=== PATIENT | male | born 1975 | race Caucasian/White ===

== ENCOUNTER → 2018-08-31 | Outpatient (CLI) | payer MEDICAID ==
[2018-08-31 14:54] LABS: EOS # 0.2 (0.04-0.40); HEMATOCRIT 50.4 % (42.0-52.0); HEMOGLOBIN 16.3 g/dL (13.5-18.0); MEAN CELL VOLUME 77 fl (78-100); MEAN CORPUSCULAR HEMOGLOBIN 25 pg (27-31); MEAN CORPUSCULAR HGB CONC 32 g/dL (33-37); MEAN PLATELET VOLUME 10.6 fl (7.4-10.4); MONO # 0.8 (0.20-0.80); NEU # 8.3 (1.40-6.50); PLATELET COUNT 255 K/mm3 (130-400); RED BLOOD COUNT 6.56 M/mm3 (4.20-5.60); RED CELL DISTRIBUTION WIDTH 16.4 % (11.5-14.5); WHITE BLOOD COUNT 11.5 K/mm3 (4.8-10.8)
[2018-08-31 15:05] LABS: ALBUMIN 3.8 g/dL (3.5-5.0); POTASSIUM 3.5 mmol/L (3.5-5.1)
[2018-08-31 15:06] LABS: CALCIUM 9.1 mg/dL (8.3-10.5)
[2018-08-31 15:08] LABS: TOTAL PROTEIN 7.4 g/dL (6.4-8.3)
[2018-08-31 15:09] LABS: TOTAL BILIRUBIN 0.5 mg/dL (0.2-1.2)
[2018-08-31 16:00] LABS: ERYTHROCYTE SEDIMENTATION RATE 7 mm/hr (0-15)
== END ==
LOC: LAB 14:35
PROVIDERS: Internal Medicine
DX: Z12.5 Encounter for screening for malignant neoplasm of prostate (principal); I10 Essential (primary) hypertension; N52.9 Male erectile dysfunction, unspecified; D64.9 Anemia, unspecified; R73.02 Impaired glucose tolerance (oral)

== ENCOUNTER → 2018-12-13 | Outpatient (CLI) | payer MEDICAID ==
[2018-12-13 16:22] LABS: EOS # 0.2 (0.04-0.40); EOS % 2.2 % (0.0-4.0); HEMATOCRIT 49.8 % (42.0-52.0); HEMOGLOBIN 15.9 g/dL (13.5-18.0); LYMPH# 2.3 (1.50-4.00); MEAN CELL VOLUME 78 fl (78-100); MEAN CORPUSCULAR HEMOGLOBIN 25 pg (27-31); MEAN CORPUSCULAR HGB CONC 32 g/dL (33-37); MEAN PLATELET VOLUME 10.5 fl (7.4-10.4); NEU # 6.6 (1.40-6.50); PLATELET COUNT 259 K/mm3 (130-400); RED BLOOD COUNT 6.41 M/mm3 (4.20-5.60); RED CELL DISTRIBUTION WIDTH 16.9 % (11.5-14.5); WHITE BLOOD COUNT 10.2 K/mm3 (4.8-10.8)
== END ==
LOC: LAB 16:08
PROVIDERS: Physician Assistant
DX: D64.9 Anemia, unspecified (principal); K92.1 Melena; R10.9 Unspecified abdominal pain; R11.2 Nausea with vomiting, unspecified

== ENCOUNTER 2020-03-31 15:52 | Emergency (ER) | payer MEDICAID ==
[2020-03-31 16:30] LABS: LIPASE 9 U/L (8-78)
[2020-03-31 17:18] LABS: D-DIMER 0.91 mg/L FEU (0.15-0.50)
[2020-03-31] MEDS ORDERED: DIGOXIN125 MCG PO (17:27)
[2020-03-31] MEDS ORDERED: AMIODARONE200 MG PO (17:27)
[2020-03-31] MEDS ORDERED: ELIQUIS5 MG PO (17:27)
[2020-03-31] MEDS ORDERED: CARDIZEM CD 18180 MG PO (17:28)
[2020-03-31] MEDS ORDERED: COZAAR100 MG PO (17:28)
[2020-03-31] MEDS ORDERED: HCTZ 25MG25 MG PO (17:28)
[2020-03-31 17:56] VITALS: BP 154/75
== END 2020-03-31 18:36 | disposition short-term general hospital (02) ==
LOC: ED 15:52
PROVIDERS: Nurse Practitioner Family
DX: D72.829 Elevated white blood cell count, unspecified (principal); R10.84 Generalized abdominal pain; K76.89 Other specified diseases of liver; I11.0 Hypertensive heart disease with heart failure; I48.91 Unspecified atrial fibrillation; E66.01 Morbid (severe) obesity due to excess calories; F17.200 Nicotine dependence, unspecified, uncomplicated; Z79.01 Long term (current) use of anticoagulants; Z20.822 Contact with and (suspected) exposure to COVID-19; Z68.42 Body mass index [BMI] 45.0-49.9, adult
CPT/HCPCS: J2543; J7030

== ENCOUNTER → 2020-03-31 | Outpatient (CLI) | payer MEDICAID ==
[~2020-03-31] MED LIST: AMIODARONE200 MG PO; CARDIZEM CD 18180 MG PO; CIPRO 500MG TA500 MG PO; COZAAR100 MG PO; DEXAMETHASONE6 M1 PO; DIGOXIN125 MCG PO; ELIQUIS5 MG PO; FIORICET 325 MG1 TAB PO; HCTZ 25MG25 MG PO; PROAIR HFA0.09 MG/AC IH; PROMETH-CODEIN 65 ML PO; SPACE CHAMBER1 EACH MC
[2020-03-31 15:01] LABS: HEMATOCRIT 37.8 % (42.0-52.0); MEAN CELL VOLUME 77 fl (78-100); MEAN CORPUSCULAR HEMOGLOBIN 25 pg (27-31); MEAN CORPUSCULAR HGB CONC 32 g/dL (33-37); MEAN PLATELET VOLUME 9.7 fl (7.4-10.4); PLATELET COUNT 461 K/mm3 (130-400); RED BLOOD COUNT 4.89 M/mm3 (4.20-5.60); RED CELL DISTRIBUTION WIDTH 15.5 % (11.5-14.5); WHITE BLOOD COUNT 19.2 K/mm3 (4.8-10.8)
[2020-03-31 15:12] LABS: LYMPHOCYTE 11 % (20-51); MONOCYTE 8 % (3-10); NEUTROPHILS 80 % (42-75)
[2020-03-31 15:17] LABS: ALBUMIN 2.9 g/dL (3.5-5.0); POTASSIUM 3.9 mmol/L (3.5-5.1)
[2020-03-31 15:18] LABS: CALCIUM 8.3 mg/dL (8.3-10.5)
[2020-03-31 15:20] LABS: TOTAL PROTEIN 7.3 g/dL (6.4-8.3)
[2020-03-31 15:22] LABS: TOTAL BILIRUBIN 1.3 mg/dL (0.2-1.2)
[2020-03-31 16:00] LABS: ERYTHROCYTE SEDIMENTATION RATE 60 mm/hr (0-15)
== END ==
LOC: LAB 14:44
PROVIDERS: Internal Medicine
DX: K75.0 Abscess of liver (principal); Z20.822 Contact with and (suspected) exposure to COVID-19

== ENCOUNTER → 2020-06-30 | Outpatient (CLI) | payer MEDICAID ==
[2020-06-30 17:59] LABS: ALBUMIN 4.1 g/dL (3.5-5.0)
[2020-06-30 18:01] LABS: CALCIUM 9.6 mg/dL (8.3-10.5)
[2020-06-30 18:02] LABS: TOTAL PROTEIN 7.9 g/dL (6.4-8.3)
[2020-06-30 18:04] LABS: TOTAL BILIRUBIN 0.4 mg/dL (0.2-1.2)
[2020-06-30 18:09] LABS: MAGNESIUM 2.06 mg/dL (1.60-2.60)
== END ==
LOC: LAB 16:22
PROVIDERS: Internal Medicine
DX: M79.10 Myalgia, unspecified site (principal)

== ENCOUNTER → 2020-08-27 | Outpatient (CLI) | payer MEDICAID ==
[2020-08-27 17:41] LABS: HEMATOCRIT 49.6 % (42.0-52.0); HEMOGLOBIN 15.4 g/dL (13.5-18.0); MEAN PLATELET VOLUME 10.1 fl (7.4-10.4); RED BLOOD COUNT 6.29 M/mm3 (4.20-5.60); RED CELL DISTRIBUTION WIDTH 14.3 % (11.5-14.5); WHITE BLOOD COUNT 10.1 K/mm3 (4.8-10.8)
== END ==
LOC: LAB 17:20
PROVIDERS: Internal Medicine
DX: K90.9 Intestinal malabsorption, unspecified (principal); R20.2 Paresthesia of skin

== ENCOUNTER → 2020-10-23 | Outpatient (CLI) | payer OTHER ==
[2020-10-23 11:22] LABS: BASO # 0.03 (0.02-0.10); EOS # 0.25 (0.04-0.40); EOS % 2.7 % (0.0-4.0); HEMATOCRIT 46.6 % (42.0-52.0); HEMOGLOBIN 14.6 g/dL (13.5-18.0); MEAN CELL VOLUME 79 fl (78-100); MEAN CORPUSCULAR HEMOGLOBIN 25 pg (27-31); MEAN CORPUSCULAR HGB CONC 31 g/dL (33-37); MONO # 0.79 (0.20-0.80); NEU # 6.01 (1.40-6.50); PLATELET COUNT 250 K/mm3 (130-400); RED BLOOD COUNT 5.88 M/mm3 (4.20-5.60); RED CELL DISTRIBUTION WIDTH 15.5 % (11.5-14.5); WHITE BLOOD COUNT 9.2 K/mm3 (4.8-10.8)
[2020-10-23 11:31] LABS: POTASSIUM 3.7 mmol/L (3.5-5.1)
[2020-10-23 11:32] LABS: ALBUMIN 3.7 g/dL (3.5-5.0)
[2020-10-23 11:33] LABS: CALCIUM 9.3 mg/dL (8.3-10.5)
[2020-10-23 11:36] LABS: TOTAL BILIRUBIN 0.8 mg/dL (0.2-1.2)
[2020-10-23 11:40] LABS: MAGNESIUM 1.95 mg/dL (1.60-2.60)
[2020-10-23 12:12] LABS: PROTHROMBIN TIME 9.9 SECONDS (9.0-12.0)
[2020-10-23 12:23] LABS: URINE APPEARANCE CLEAR; URINE BILIRUBIN NEGATIVE (NEGATIVE); URINE BLOOD NEGATIVE (NEGATIVE); URINE COLOR YELLOW; URINE GLUCOSE NEGATIVE (NEGATIVE); URINE KETONE NEGATIVE (NEGATIVE); URINE LEUKOCYTE ESTERASE NEGATIVE (NEGATIVE); URINE MUCUS PRESENT (NOT PRESENT); URINE NITRATE NEGATIVE (NEGATIVE); URINE PROTEIN(semi-quant) NEGATIVE (NEGATIVE); URINE UROBILINOGEN NORMAL (NORMAL)
== END ==
LOC: LAB 10:50
PROVIDERS: Internal Medicine
DX: Z01.818 Encounter for other preprocedural examination (principal); Z12.5 Encounter for screening for malignant neoplasm of prostate; M47.814 Spondylosis without myelopathy or radiculopathy, thoracic region; E78.2 Mixed hyperlipidemia; R73.03 Prediabetes; K90.9 Intestinal malabsorption, unspecified; R79.89 Other specified abnormal findings of blood chemistry

== ENCOUNTER 2020-12-26 12:21 | Emergency (ER) | payer MEDICAID ==
[~2020-12-26 12:21] MED LIST changes: -CIPRO 500MG TA500 MG PO; -DEXAMETHASONE6 M1 PO; -FIORICET 325 MG1 TAB PO; -PROAIR HFA0.09 MG/AC IH; -PROMETH-CODEIN 65 ML PO; -SPACE CHAMBER1 EACH MC
[2020-12-26 13:31] LABS: BASO # 0.04 K/mm3 (0.02-0.10); EOS # 0.15 K/mm3 (0.04-0.40); EOS % 2.2 % (0.0-4.0); HEMATOCRIT 44.5 % (42.0-52.0); HEMOGLOBIN 14.1 g/dL (13.5-18.0); LYMPH# 1.24 K/mm3 (1.50-4.00); MEAN CELL VOLUME 78 fl (78-100); MEAN CORPUSCULAR HEMOGLOBIN 25 pg (27-31); MEAN CORPUSCULAR HGB CONC 32 g/dL (33-37); MEAN PLATELET VOLUME 10.1 fl (7.4-10.4); MONO # 0.87 K/mm3 (0.20-0.80); NEU # 4.36 K/mm3 (1.40-6.50); PLATELET COUNT 234 K/mm3 (130-400); RED BLOOD COUNT 5.68 M/mm3 (4.20-5.60); RED CELL DISTRIBUTION WIDTH 14.1 % (11.5-14.5); WHITE BLOOD COUNT 6.7 K/mm3 (4.8-10.8)
[2020-12-26 13:41] LABS: ALBUMIN 3.6 g/dL (3.5-5.0)
[2020-12-26 13:42] LABS: POTASSIUM 3.3 mmol/L (3.5-5.1)
[2020-12-26 13:43] LABS: CALCIUM 9.3 mg/dL (8.3-10.5)
[2020-12-26 13:44] LABS: TOTAL PROTEIN 7.1 g/dL (6.4-8.3)
[2020-12-26 13:46] LABS: TOTAL BILIRUBIN 0.3 mg/dL (0.2-1.2)
[2020-12-26 14:53] LABS: STREP SCREEN NEGATIVE (NEGATIVE)
[2020-12-26 15:00] VITALS: BP 168/91
[2020-12-26] MEDS ORDERED: CIPRO 500MG TA500 MG PO (15:07)
[2020-12-26] MEDS ORDERED: SPACE CHAMBER1 EACH MC (16:05)
[2020-12-26] MEDS ORDERED: DEXAMETHASONE6 M1 PO (16:05)
[2020-12-26] MEDS ORDERED: PROMETH-CODEIN 65 ML PO (16:05)
[2020-12-26] MEDS ORDERED: PROAIR HFA0.09 MG/AC IH (16:05)
[2020-12-26] MEDS ORDERED: FIORICET 325 MG1 TAB PO (16:07)
== END 2020-12-26 16:35 | disposition home or self-care (01) ==
LOC: ED 12:21
PROVIDERS: Family Medicine
DX: B34.9 Viral infection, unspecified (principal); I10 Essential (primary) hypertension; F17.290 Nicotine dependence, other tobacco product, uncomplicated; Z88.8 Allergy status to other drugs, medicaments and biological substances; Z20.822 Contact with and (suspected) exposure to COVID-19; Z79.899 Other long term (current) drug therapy
CPT/HCPCS: J3480

== ENCOUNTER 2021-01-25 15:22 | Emergency (ER) | payer MEDICAID ==
[~2021-01-25 15:22] MED LIST changes: +CIPRO 500MG TA500 MG PO; +DEXAMETHASONE6 M1 PO; +FIORICET 325 MG1 TAB PO; +PROAIR HFA0.09 MG/AC IH; +PROMETH-CODEIN 65 ML PO; +SPACE CHAMBER1 EACH MC
[2021-01-25] MEDS ORDERED: BUTALBITAL, ACE1 TA2 PO (17:07)
[2021-01-25 17:20] LABS: BASO # 0.03 K/mm3 (0.02-0.10); EOS # 0.19 K/mm3 (0.04-0.40); EOS % 2.1 % (0.0-4.0); HEMATOCRIT 46.6 % (42.0-52.0); HEMOGLOBIN 14.5 g/dL (13.5-18.0); LYMPH# 1.93 K/mm3 (1.50-4.00); MEAN CELL VOLUME 79 fl (78-100); MEAN CORPUSCULAR HEMOGLOBIN 25 pg (27-31); MEAN CORPUSCULAR HGB CONC 31 g/dL (33-37); MEAN PLATELET VOLUME 9.6 fl (7.4-10.4); MONO # 0.83 K/mm3 (0.20-0.80); NEU # 6.06 K/mm3 (1.40-6.50); PLATELET COUNT 271 K/mm3 (130-400); RED CELL DISTRIBUTION WIDTH 15.2 % (11.5-14.5); WHITE BLOOD COUNT 9.1 K/mm3 (4.8-10.8)
[2021-01-25 17:38] LABS: ALBUMIN 3.8 g/dL (3.5-5.0); POTASSIUM 3.8 mmol/L (3.5-5.1)
[2021-01-25 17:39] LABS: CALCIUM 9.7 mg/dL (8.3-10.5)
[2021-01-25 17:40] LABS: TOTAL PROTEIN 7.4 g/dL (6.4-8.3)
[2021-01-25 17:42] LABS: TOTAL BILIRUBIN 0.3 mg/dL (0.2-1.2)
[2021-01-25 17:45] LABS: URINE APPEARANCE CLEAR; URINE COLOR YELLOW
[2021-01-25 17:46] LABS: PH-URINE 5.5 (5.0 - 8.0); URINE BILIRUBIN NEGATIVE (NEGATIVE); URINE BLOOD TRACE (NEGATIVE); URINE GLUCOSE NEGATIVE (NEGATIVE); URINE KETONE NEGATIVE (NEGATIVE); URINE LEUKOCYTE ESTERASE TRACE (NEGATIVE); URINE MUCUS PRESENT (NOT PRESENT); URINE NITRATE NEGATIVE (NEGATIVE); URINE PROTEIN(semi-quant) TRACE (NEGATIVE); URINE UROBILINOGEN NORMAL (NORMAL); URINE WBC 0-1 /hpf (0-3)
[2021-01-25 18:19] VITALS: BP 191/92
== END 2021-01-25 18:28 | disposition home or self-care (01) ==
LOC: ED 15:22
PROVIDERS: Nurse Practitioner
DX: H10.11 Acute atopic conjunctivitis, right eye (principal); R51.9 Headache, unspecified; R53.81 Other malaise; I10 Essential (primary) hypertension; E66.01 Morbid (severe) obesity due to excess calories; Z79.899 Other long term (current) drug therapy; Z20.822 Contact with and (suspected) exposure to COVID-19

== ENCOUNTER → 2021-06-07 | Outpatient (CLI) | payer MEDICAID ==
[~2021-06-07] MED LIST changes: +BUTALBITAL, ACE1 TA2 PO
[2021-06-07 11:20] LABS: BASO # 0.03 K/mm3 (0.02-0.10); EOS % 3.1 % (0.0-4.0); HEMATOCRIT 50.2 % (42.0-52.0); HEMOGLOBIN 15.3 g/dL (13.5-18.0); LYMPH# 1.96 K/mm3 (1.50-4.00); MEAN CELL VOLUME 81 fl (78-100); MEAN CORPUSCULAR HEMOGLOBIN 25 pg (27-31); MEAN CORPUSCULAR HGB CONC 31 g/dL (33-37); MEAN PLATELET VOLUME 10.3 fl (7.4-10.4); NEU # 6.72 K/mm3 (1.40-6.50); PLATELET COUNT 253 K/mm3 (130-400); RED BLOOD COUNT 6.21 M/mm3 (4.20-5.60); RED CELL DISTRIBUTION WIDTH 15.1 % (11.5-14.5); WHITE BLOOD COUNT 9.7 K/mm3 (4.8-10.8)
[2021-06-07 11:37] LABS: ALBUMIN 4.2 g/dL (3.5-5.0); POTASSIUM 3.9 mmol/L (3.5-5.1)
[2021-06-07 11:38] LABS: CALCIUM 9.6 mg/dL (8.3-10.5)
[2021-06-07 11:39] LABS: TOTAL PROTEIN 7.9 g/dL (6.4-8.3)
[2021-06-07 11:41] LABS: TOTAL BILIRUBIN 0.5 mg/dL (0.2-1.2)
== END ==
LOC: LAB 10:55
PROVIDERS: Internal Medicine
DX: D35.02 Benign neoplasm of left adrenal gland (principal); D17.79 Benign lipomatous neoplasm of other sites; K05.6 Periodontal disease, unspecified; I10 Essential (primary) hypertension; K92.1 Melena; M54.16 Radiculopathy, lumbar region; E66.01 Morbid (severe) obesity due to excess calories; R73.03 Prediabetes

== ENCOUNTER → 2022-04-01 | Outpatient (CLI) | payer MEDICAID ==
[2022-04-01 10:01] LABS: BASO # 0.02 K/mm3 (0.02-0.10); EOS # 0.31 K/mm3 (0.04-0.40); EOS % 3.4 % (0.0-4.0); HEMATOCRIT 46.2 % (42.0-52.0); HEMOGLOBIN 14.2 g/dL (13.5-18.0); LYMPH# 1.62 K/mm3 (1.50-4.00); MEAN CELL VOLUME 80 fl (78-100); MEAN CORPUSCULAR HEMOGLOBIN 25 pg (27-31); MEAN CORPUSCULAR HGB CONC 31 g/dL (33-37); MEAN PLATELET VOLUME 10.1 fl (7.4-10.4); MONO # 0.61 K/mm3 (0.20-0.80); NEU # 6.64 K/mm3 (1.40-6.50); PLATELET COUNT 238 K/mm3 (130-400); RED CELL DISTRIBUTION WIDTH 15.8 % (11.5-14.5); WHITE BLOOD COUNT 9.2 K/mm3 (4.8-10.8)
[2022-04-01 10:06] LABS: ALBUMIN 3.7 g/dL (3.5-5.0); POTASSIUM 4.1 mmol/L (3.5-5.1)
[2022-04-01 10:07] LABS: CALCIUM 10.1 mg/dL (8.3-10.5)
[2022-04-01 10:09] LABS: TOTAL PROTEIN 7.1 g/dL (6.4-8.3)
[2022-04-01 10:10] LABS: TOTAL BILIRUBIN 0.7 mg/dL (0.2-1.2)
[2022-04-01 10:15] LABS: MAGNESIUM 1.8 mg/dL (1.60-2.60)
== END ==
LOC: LAB 09:36
PROVIDERS: Internal Medicine
DX: D35.02 Benign neoplasm of left adrenal gland (principal); D17.79 Benign lipomatous neoplasm of other sites; K05.6 Periodontal disease, unspecified; I10 Essential (primary) hypertension; K92.1 Melena; M54.16 Radiculopathy, lumbar region; E66.01 Morbid (severe) obesity due to excess calories; K90.9 Intestinal malabsorption, unspecified; R73.03 Prediabetes; R06.00 Dyspnea, unspecified

== ENCOUNTER 2022-09-20 10:54 | Outpatient (RCR) | payer MEDICAID | END 2022-10-06 | disposition home or self-care (01) | LOC: PT | DX: M25.512 Pain in left shoulder (principal) ==

== ENCOUNTER 2022-12-07 08:00 | Outpatient (RCR) | payer MEDICAID | END 2023-01-05 | disposition home or self-care (01) | LOC: PT | DX: M25.512 Pain in left shoulder (principal) ==

== ENCOUNTER → 2023-03-16 | Outpatient (CLI) | payer MEDICAID ==
[2023-03-16 09:17] LABS: BASO # 0.04 K/mm3 (0.02-0.10); EOS # 0.36 K/mm3 (0.04-0.40); EOS % 3.8 % (0.0-4.0); HEMATOCRIT 49.1 % (42.0-52.0); HEMOGLOBIN 15.1 g/dL (13.5-18.0); LYMPH# 1.68 K/mm3 (1.50-4.00); MEAN CELL VOLUME 76 fl (78-100); MEAN CORPUSCULAR HEMOGLOBIN 23 pg (27-31); MEAN CORPUSCULAR HGB CONC 31 g/dL (33-37); MEAN PLATELET VOLUME 10.6 fl (7.4-10.4); MONO # 0.98 K/mm3 (0.20-0.80); NEU # 6.33 K/mm3 (1.40-6.50); PLATELET COUNT 248 K/mm3 (130-400); RED BLOOD COUNT 6.48 M/mm3 (4.20-5.60); RED CELL DISTRIBUTION WIDTH 18.5 % (11.5-14.5); WHITE BLOOD COUNT 9.4 K/mm3 (4.8-10.8)
[2023-03-16 09:22] LABS: ALBUMIN 4.1 g/dL (3.5-5.0)
[2023-03-16 09:24] LABS: TOTAL PROTEIN 7.8 g/dL (6.4-8.3)
[2023-03-16 09:26] LABS: TOTAL BILIRUBIN 0.4 mg/dL (0.2-1.2)
[2023-03-16 09:31] LABS: MAGNESIUM 1.81 mg/dL (1.60-2.60)
== END ==
LOC: LAB 09:01
PROVIDERS: Internal Medicine
DX: I10 Essential (primary) hypertension (principal)

== ENCOUNTER 2023-03-23 13:47 | Outpatient (RCR) | payer MEDICAID | END 2023-04-06 | disposition home or self-care (01) | LOC: PT | DX: M25.512 Pain in left shoulder (principal) ==

== ENCOUNTER → 2023-04-27 | Outpatient (CLI) | payer MEDICAID | LOC: RAD 13:48 | DX: M19.071 Primary osteoarthritis, right ankle and foot (principal) ==